=== PATIENT | male | born 1975 | race Caucasian/White ===

== ENCOUNTER 2016-10-13 11:43 | Day surgery (SDC) | payer BC ==
[~2016-10-13] VITALS: Ht 167.6 cm; Wt 98.1 kg
[2016-10-13 12:11] VITALS: Ht 167.6 cm; Wt 98.1 kg
[2016-10-13] MEDS ORDERED: PANT20TA3 PO (12:41)
[2016-10-13] MEDS ORDERED: MIDAZOLAM 1 MG/ML 2 ML INJ ONE (12:53)
[2016-10-13] MEDS ORDERED: PROPOFOL 20 ML ONE (12:53)
[2016-10-13] MEDS ORDERED: FENTAnyl 50 MCG/ML VIAL ONE (12:54)
[2016-10-13 12:57] VITALS: BP 110/70; PULSE 73; RESP 18
[2016-10-13] MEDS ORDERED: PHENYLephrine (100 MCG/ML) 5ML SYG ONE (13:01)
[2016-10-13 13:10] VITALS: BP 115/74; PULSE 82; RESP 20
[2016-10-13 13:45] VITALS: BP 109/72; PULSE 80; RESP 20
--- NOTE | 2016-10-13 15:57 | GILP ---
DATE OF PROCEDURE: 10/13/2016 NAME OF PROCEDURES: Esophagogastroduodenoscopy and biopsy. SURGEON: Sheree Hunt MD PREOPERATIVE DIAGNOSES: 1. Abdominal pain. 2. Chronic heartburn. POSTOPERATIVE DIAGNOSES: 1. Hiatal hernia. 2. Reflux esophagitis with erosions. 3. Ulcer at the esophagogastric junction. 4. Gastritis with erosions. 5. Gastric mucosal biopsies were taken for Helicobacter pylori test. INDICATION FOR THE PROCEDURE: Mr. Kevin Simon is a 41-year-old male patient who had upper ab dominal pain and chronic heartburn, not responding to therapy, so the patient was scheduled for endo scopic examination for further evaluation. The procedure and possible complications were well explained to the patient. The patient understood and consented to the procedure. DESCRIPTION OF PROCEDURE: Under the influence of anesthesia, the gastroscope was carefully introduc ed into the esophagus and under direct vision, it was advanced to the stomach and through the pyloru s into the duodenal bulb and descending duodenum. FINDINGS: ESOPHAGUS: The patient had hiatal hernia with reflux esophagitis with erosions at the lower end. P atient also had an ulcer at the esophagogastric junction. STOMACH: The patient had gastritis with erosions. Gastric mucosal biopsies were taken for H. pylor i test. DUODENUM: Normal. The patient tolerated the procedure very well and there was no complication from the procedure. At the end of the procedure, he was awake with stable vital signs and he was discharged home to the car e of his family. IMPRESSION: Please see postoperative diagnoses. PLAN: 1. Nexium 24 hours p.o. q.a.m. 2. Zantac 300 mg p.o. at bedtime. 3. Await H. pylori test report. Dictated By: SHEREE COX/[place] Conf#: [id number] DID#: [id number]
== END 2016-10-13 13:39 | disposition home or self-care (01) ==
LOC: GIL 11:43
PROVIDERS: ATTEND Internal Medicine Gastroenterology
DX: K44.9 Diaphragmatic hernia without obstruction or gangrene (principal); K21.0 Gastro-esophageal reflux disease with esophagitis; K29.60 Other gastritis without bleeding; E66.9 Obesity, unspecified; Z68.34 Body mass index [BMI] 34.0-34.9, adult; E78.5 Hyperlipidemia, unspecified
CPT/HCPCS: 43239; 87081; J2250; J2370; J3010; Z7610